=== PATIENT | female | born 1980 | race Caucasian/White ===

== ENCOUNTER 2020-10-12 09:07 | Emergency (ER) | payer MEDICAID ==
[~2020-10-12] VITALS: Ht 167.6 cm; Wt 56.7 kg
--- NOTE | 2020-10-12 09:42 | Emergency Room Report ---
History of Present Illness General Chief Complaint: Skin Rash/Abscess Source: Patient Present Illness HPI Disclaimer: Please note that this report is being documented using DRAGON technology. This can lead to erroneous entry secondary to incorrect interpretation by the dictating instrument. HPI: 40-year-old female presents for wound on the left buttock. She believes she was bit by an insect for days ago but did not see an insect or noticed the actual bite. She reports it was pimple-like and then popped this morning causing it to drain pus. Tender to palpation. Surrounding redness. Denies fever or chills. No other complaints at this time. PMH: Reviewed PSH: Reviewed Allergies: Anaphylactic reaction to amoxicillin Social Hx: Reviewed Allergies: Coded Allergies: PENICILLINS (Verified Allergy, Severe, Hives, 10/12/20) COVID-19 Screening Contact w/high risk pt: No Experienced COVID-19 symptoms?: No COVID-19 Testing performed MANAGER OF MAINTENANCE: Yes COVID-19 Screening: Negative COVID-19 COVID-19 Testing Source: unk Patient History Last Menstrual Period: now Now: No Nursing Documentation-PMH Past Medical History: No Stated History Review of Systems All Other Systems: negative except mentioned in HPI Physical Exam Vital Signs Date Time Temp Pulse Resp B/P (MAP) Pulse Ox O2 Delivery O2 Flow Rate FiO2 10/12/20 09:20 98.4 87 20 130/75 (93) 96 Room Air General: Awake and alert, no acute distress HEENT: NC/AT. EOMI. Resp: Normal work of breathing Skin: There is a 4 x 4 centimeter area of erythema over the left buttock with a central purulent head and active drainage of purulent material. No bleeding. Tender to palpation. No crepitus. MSK: Normal tone and bulk. Moving all extremities. No obvious deformity. Neuro: Awake and alert. Mentating appropriately Medical Decision Making Diagnostic Impression: Primary Impression: Abscess and cellulitis of gluteal region ER Course 40-year-old female presents with an abscess over the left buttock. Confirmed by ultrasound. Shows multiple small loculated fluid collections. Wound is active ly draining. Recommended incision and drainage of the abscess however the patient refused. She said significant anxiety and because she is driving could not provide anxiolytics. She states she wants to try antibiotics at home and try to express more of the purulent material herself in the bath. He has an anaphylactic reaction to penicillins and will start on Bactrim. I instructed her to return if her symptoms fail to improve over the next few days for incision and drainage. She agrees to this plan will be discharged. Diagnostic POCUS Bedside Ultrasound Diagnostics: Bedside US Exam performed: Soft Tissue Limited Number of Views: Limited Interpreted by Emergency Physi: Yes Soft Tissue Limited Findings: No foreign body, Other - Cobblestoning present, fluid pockets present, consistent with abscess Impression: Abscess Electronically Signed by: Electronically signed by Dr. Dwain Hughes MD Last Vital Signs Date Time Temp Pulse Resp B/P (MAP) Pulse Ox O2 Delivery O2 Flow Rate FiO2 10/12/20 09:20 98.4 87 20 130/75 (93) 96 Room Air Disposition: HOME, SELF-CARE Condition: Stable Scripts Ibuprofen* (MOTRIN*) 600 Mg Tablet 600 MG ORAL Q6H PRN for For Pain, #30 TAB 0 Refills Prov: Dwain Hughes MD 10/12/20 Trimethoprim/Sulfamethoxazole 160/800* (BACTRIM DS TABLET*) 1 Each Tablet 1 TAB ORAL Q12H for 7 Days, #14 TAB 0 Refills Prov: Dwain Hughes MD 10/12/20 Dwain Hughes MD Oct 12, 2020 09:42
--- NOTE | 2020-10-12 09:45 | NUR ---
ED Nurse Note: Patient present to ER due to redness, swelling and tenderness area 4cm x4cm, raised area without draining x 4 days. Reports no fever, chill, N/V. Patient states she is currently on menstrual period. Patient awake, alert oriented x 4. Regular, unlabored breathing noted. Patient drove here and attempting to contact family or friend. Held Valium at this time. ERMD made aware.
--- NOTE | 2020-10-12 09:50 | NUR ---
ED Nurse Note: I&D tray at bedside.
--- NOTE | 2020-10-12 10:09 | NUR ---
ED Nurse Note: Patient unable to get hold of family member or friend. Patient verbalized understanding that RN unable to administer med (Valium) as she is driving back home. ERMD made aware.
[2020-10-12] MEDS ORDERED: Lidocaine HCl 2% Jelly 6ml Tube TOPIC ONE (10:15)
[2020-10-12] MEDS ORDERED: IBUPROFEN600 M1 ORAL (10:22)
[2020-10-12] MEDS ORDERED: BACTRIM DS TAB1 EAC1 ORAL (10:22)
--- NOTE | 2020-10-12 10:25 | NUR ---
ED Nurse Note: Patient refused lidocaine jelly. Patient states she will come back with friend as she needs meds ("calm her katina") for procedure. Patient states she also wants to try oral antibiotics, sitz bath at home.
--- NOTE | 2020-10-12 10:38 | NUR ---
ED Nurse Note: Patient not found in the room. Per charge master specialist, patient went to her car and will come back for d/c paperwork and prescription.
--- NOTE | 2020-10-12 10:50 | NUR ---
ED Nurse Note: Pt cleared by health care Provider for discharge. DC instructions/prescription was given and explained to pt and verbalized understanding of teachings. All medical devices such as ID band removed. Pt is AAO x4, ambulatory and left with all personal belongings. pt aware to return if not improving with antibiotic use.
[2020-10-12 10:53] VITALS: BP 122/72
== END 2020-10-12 10:53 | disposition home or self-care (01) ==
LOC: EMR 09:20
DX: L02.31 Cutaneous abscess of buttock (principal); L03.317 Cellulitis of buttock; Z88.0 Allergy status to penicillin
CPT/HCPCS: 99283